=== PATIENT | male | born 1985 | race Caucasian/White ===

== ENCOUNTER → 2018-08-21 | Outpatient (CLI) | payer SELFPAY ==
[2018-08-21 09:59] LABS: ALBUMIN 4.3 g/dL (3.5-5.0); POTASSIUM 3.8 mmol/L (3.5-5.1)
[2018-08-21 10:02] LABS: TOTAL PROTEIN 7.5 g/dL (6.4-8.3)
[2018-08-21 10:04] LABS: HEMATOCRIT 48.1 % (42.0-52.0); HEMOGLOBIN 16.9 g/dL (13.5-18.0); MEAN CELL VOLUME 88 fl (78-100); MEAN CORPUSCULAR HEMOGLOBIN 31 pg (27-31); MEAN CORPUSCULAR HGB CONC 35 g/dL (33-37); MEAN PLATELET VOLUME 10.7 fl (7.4-10.4); PLATELET COUNT 257 K/mm3 (130-400); RED BLOOD COUNT 5.49 M/mm3 (4.20-5.60); RED CELL DISTRIBUTION WIDTH 12.7 % (11.5-14.5); TOTAL BILIRUBIN 1.2 mg/dL (0.2-1.2); WHITE BLOOD COUNT 5.4 K/mm3 (4.8-10.8)
[2018-08-21 10:37] LABS: LYMPHOCYTE 21 % (20-51); MONOCYTE 11 % (3-10); NEUTROPHILS 62 % (42-75)
== END ==
LOC: LAB 09:27
PROVIDERS: Nurse Practitioner
DX: R10.9 Unspecified abdominal pain (principal); R19.7 Diarrhea, unspecified

== ENCOUNTER → 2018-08-28 | Outpatient (CLI) | payer SELFPAY | LOC: LAB 16:42 | DX: R10.9 Unspecified abdominal pain (principal); R19.7 Diarrhea, unspecified ==

== ENCOUNTER 2020-01-24 15:40 | Emergency (ER) | payer OTHER ==
[2020-01-24 15:53] VITALS: BP 94/78
== END 2020-01-24 16:57 | disposition home or self-care (01) ==
LOC: ED 15:40
DX: S67.10XA Crushing injury of unspecified finger(s), initial encounter (principal); S60.00XA Contusion of unspecified finger without damage to nail, initial encounter; W23.1XXA Caught, crushed, jammed, or pinched between stationary objects, initial encounter; Y92.59 Other trade areas as the place of occurrence of the external cause; Y99.0 Civilian activity done for income or pay

== ENCOUNTER → 2020-09-03 | Outpatient (CLI) | payer SELFPAY | LOC: LAB 18:31 | DX: R05 Cough (principal); Z20.822 Contact with and (suspected) exposure to COVID-19 ==

== ENCOUNTER → 2021-03-25 | Outpatient (CLI) | payer OTHER ==
[2021-03-25 09:33] LABS: BASO # 0.04 K/mm3 (0.02-0.10); EOS # 0.27 K/mm3 (0.04-0.40); EOS % 3.2 % (0.0-4.0); HEMATOCRIT 44.8 % (42.0-52.0); HEMOGLOBIN 15.7 g/dL (13.5-18.0); MEAN CELL VOLUME 89 fl (78-100); MEAN CORPUSCULAR HEMOGLOBIN 31 pg (27-31); MEAN CORPUSCULAR HGB CONC 35 g/dL (33-37); MEAN PLATELET VOLUME 9.7 fl (7.4-10.4); MONO # 1.34 K/mm3 (0.20-0.80); NEU # 5.57 K/mm3 (1.40-6.50); PLATELET COUNT 284 K/mm3 (130-400); RED BLOOD COUNT 5.01 M/mm3 (4.20-5.60); RED CELL DISTRIBUTION WIDTH 11.7 % (11.5-14.5); WHITE BLOOD COUNT 8.4 K/mm3 (4.8-10.8)
[2021-03-25 09:44] LABS: ALBUMIN 4.1 g/dL (3.5-5.0); POTASSIUM 4.5 mmol/L (3.5-5.1)
[2021-03-25 09:45] LABS: CALCIUM 9.6 mg/dL (8.3-10.5)
[2021-03-25 09:46] LABS: TOTAL PROTEIN 7.4 g/dL (6.4-8.3)
== END ==
LOC: LAB 09:09
PROVIDERS: Nurse Practitioner Family
DX: R19.7 Diarrhea, unspecified (principal)